=== PATIENT | male | born 1945 | race Caucasian/White ===

== ENCOUNTER → 2020-11-22 08:38 | Outpatient (CLI) | payer OTHER, SELFPAY ==
[2020-11-22 10:38] LABS: Cholesterol 134 mg/dL (140-199); HDL Cholesterol 34 mg/dL (40-60); LDL Cholesterol Calculated 73 mg/dL (<100); Triglycerides 137 mg/dL (35-150)
== END ==
PROVIDERS: Family Provider Internal Medicine; PCP Internal Medicine; Referring Provider Internal Medicine Cardiovascular Disease; Visit Provider Internal Medicine Cardiovascular Disease
DX: I25.10 Atherosclerotic heart disease of native coronary artery without angina pectoris (principal)
CPT/HCPCS: 36415; 80061